=== PATIENT | female | born 1965 | race Hispanic/Latino ===

== ENCOUNTER 2019-10-20 10:29 | Emergency (ER) | payer OTHER ==
[2019-10-20] MEDS ORDERED: KETOROLAC 30 MG/ML INJ ONE (12:12)
[2019-10-20] MEDS ORDERED: ONDANSETRON 4 MG/2 ML VIAL ONE (12:12)
[2019-10-20] MEDS ORDERED: NA CHLORIDE 0.9% 1,000 ML ONE (12:12)
[2019-10-20 12:24] LABS: Absolute Lymphocytes (CBC) 1.7 K/uL (0.7-4.9); Basophils % 0.7 % (0-1.3); Hematocrit 41.6 % (36.0-45.0); Lymphocytes % 15.2 % (15.3-44.8); MPV 9.1 fL (7.6-11.3); RBC Red Blood Cell Count 4.73 M/uL (3.86-4.86)
[2019-10-20 12:42] LABS: Albumin 3.6 g/dL (3.4-5.0); Bilirubin Direct 0.1 mg/dL (0-0.2); Bilirubin Total 0.5 mg/dL (0.2-1.0); Potassium 3.7 mmol/L (3.5-5.1)
--- NOTE | 2019-10-20 12:51 | RAD REPORT ---
EXAM DESCRIPTION: CT - Abdomen Pelvis W Contrast - 10/20/2019 12:23 pm CLINICAL HISTORY: ABD PAIN COMPARISON: No comparisons TECHNIQUE: Biphasic, helical CT imaging of the abdomen and pelvis was performed following 100 ml non -ionic IV contrast. No oral contrast administered. All CT scans are performed using dose optimization technique as appropriate and may include automated exposure control or mA/KV adjustment according to patient size. FINDINGS: No suspicious findings in the lung bases. Diffuse fatty infiltration of the liver is present. No focal liver lesion. No portal vein abnormality . Spleen and pancreas show no suspicious findings. Gallbladder and biliary tree are also without susp icious finding. Symmetric renal function is seen with no hydronephrosis or suspicious renal mass. No pyelonephritis o r acute parenchymal process. Bladder is fully contracted. No adrenal abnormalities. Uterus and ovar ies show no suspicious findings. No stomach or small bowel abnormality. The appendix is normal. From cecum through mid descending colo n no acute findings seen. At the descending sigmoid junction there is a 5 centimeter long segment of circumferential wall thickening and edema. There is stranding in the adjacent fat. Patient has modera te severity diverticulosis in this region. No free air or pneumatosis. No extension into the extraluminal space. No hernia, mass or bulky lymph adenopathy. No suspicious bony findings. IMPRESSION: Acute diverticulitis at the descending colon - sigmoid colon junction in the left lower quadrant. No abscess, free air or other complicating factor.
--- NOTE | 2019-10-20 13:01 | ER ---
Nurse's Notes [facility] Name: Althea Gómez Age: 53 yrs Sex: Female : 1965 Arrival Date: 10/20/2019 Time: 10:32 Bed 20 Private MD: Diagnosis: Diverticulitis of intestine, part unspecified, without perforation or abscess without bleeding Presentation: 10/19 11:29 Chief complaint: Patient states: Lower pelvic pain since yesterday. Slight nausea. No ll1 fever. Coronavirus screen: Client denies travel out of the [place] in the last 14 days. At this time, the client does not indicate any symptoms associated with coronavirus-19. Ebola Screen: Patient denies travel to an Ebola-affected area in the 21 days before illness onset. Initial Sepsis Screen: Does the patient meet any 2 criteria? No. Patient's initial sepsis screen is negative. Risk Assessment: Do you want to hurt yourself or someone else? Patient reports no desire to harm self or others. Onset of symptoms was October 19, 2019. 11:29 Acuity: MAYRA 3 ll1 11:29 Method Of Arrival: Ambulatory ll1 Historical: - Allergies: 11:29 No Known Allergies; ll1 - Immunization history:: Adult Immunizations up to date, Flu vaccine is up to date. - Social history:: Smoking status: Patient denies any tobacco usage or history of. Patient/guardian denies using street drugs. Screenin:56 Abuse screen: Denies threats or abuse. Nutritional screening: No deficits noted. em Tuberculosis screening: No symptoms or risk factors identified. Fall Risk None identified. Assessment: 12:00 General: Appears in no apparent distress. comfortable, Behavior is calm, cooperative, em appropriate for age, Denies fever. Pain: Complains of pain in right inguinal area and left inguinal area Pain currently is 4 out of 10 on a pain scale. Pain began 1 day ago. Neuro: Level of Consciousness is awake, alert, obeys commands, Oriented to person, place, time, situation, Appropriate for age. Cardiovascular: Capillary refill < 3 seconds Patient's skin is warm and dry. Respiratory: Airway is patent Respiratory effort is even, unlabored, Respiratory pattern is regular, symmetrical. GI: Abdomen is flat, Bowel sounds present X 4 quads. Reports nausea, Patient currently denies diarrhea, vomiting. : Denies burning with urination, discharge, vaginal bleeding. Derm: Skin is intact, is healthy with good turgor, Skin is pink, warm \T\ dry. Musculoskeletal: Capillary refill < 3 seconds, Range of motion: intact in all extremities. 12:15 Reassessment: currently wants to hold off on the nausea medication, provider notified. em 13:20 Reassessment: Patient appears in no apparent distress at this time. Patient and/or em family updated on plan of care and expected duration. Pain level reassessed. Patient is alert, oriented x 3, equal unlabored respirations, skin warm/dry/pink. Patient states feeling better. Patient states symptoms have improved. Vital Signs: 11:29 BP 148 / 92; Pulse 109; Resp 18; Temp 99.0; Pulse Ox 100% ; Weight 69.4 kg; Height 5 ll1 ft. 1 in. (154.94 cm); Pain 8/10; 13:20 BP 129 / 89; Pulse 102; Resp 20; Pulse Ox 99% on R/A; em 11:29 Body Mass Index 28.91 (69.40 kg, 154.94 cm) ll1 ED Course: 10:32 Patient arrived in ED. ds1 11:29 Arm band placed on Patient notified of wait time. ll1 11:30 Triage completed. ll1 11:37 Lorrie Wood FNP-C is [facility]. kb 11:37 Xavier Abel MD is Attending Physician. kb 11:56 Jameson Richter, RN is Primary Nurse. em 11:56 Patient has correct armband on for positive identification. Placed in gown. Bed in low em position. Call light in reach. Side rails up X2. 12:23 CT Abd/Pelvis - IV Contrast Only In Process Unspecified. EDMS 13:20 No provider procedures requiring assistance completed. IV discontinued, intact, em bleeding controlled, No redness/swelling at site. Pressure dressing applied. Administered Medications: 12:13 Drug: NS 0.9% 1000 ml Route: IV; Rate: 1000 ml; Site: left antecubital; em 13:09 Follow up: IV Status: Completed infusion; IV Intake: 1000ml em 12:13 Drug: TORadol - Ketorolac 15 mg Route: IVP; Site: left antecubital; em 13:09 Drug: Cipro 500 mg Route: PO; em 13:09 Drug: Flagyl 500 mg Route: PO; em 13:11 Drug: Zofran (Ondansetron) 4 mg Route: IVP; Site: left antecubital; em Intake: 13:09 IV: 1000ml; Total: 1000ml. em Outcome: 13:00 Discharge ordered by . samuel 13:20 Discharged to home ambulatory. em 13:20 Condition: good 13:20 Discharge instructions given to patient, Instructed on discharge instructions, follow up and referral plans. medication usage, Demonstrated understanding of instructions, follow-up care, medications, Prescriptions given X 4. 13:22 Patient left the ED. ll1 Signatures: Dispatcher [employer] Lorrie Gutierrez, REVIEW SCHEDULING COORDINATOR-C REVIEW SCHEDULING COORDINATOR-Jameson Correia, RN RN Victoria Campuzano ds1 Valerie Granda RN RN ll1
--- NOTE | 2019-10-20 13:01 | EDPHYS ---
Physician Documentation [facility] Name: Althea Gómez Age: 53 yrs Sex: Female : 1965 Arrival Date: 10/20/2019 Time: 10:32 Bed 20 Private MD: ED Physician Xavier Abel HPI: 10/19 12:58 This 53 yrs old Female presents to ER via Ambulatory with complaints of Pelvic kb Pain. 12:58 The patient presents with abdominal pain in the left lower quadrant. Onset: The kb symptoms/episode began/occurred yesterday. The symptoms do not radiate. Associated signs and symptoms: Pertinent positives: nausea, Pertinent negatives: fever, vomiting. The symptoms are described as constant. Modifying factors: The symptoms are alleviated by nothing, the symptoms are aggravated by nothing. Severity of pain: At its worst the pain was moderate in the emergency department the pain is unchanged. The patient has not experienced similar symptoms in the past. The patient has not recently seen a physician. Historical: - Allergies: 11:29 No Known Allergies; ll1 - Immunization history:: Adult Immunizations up to date, Flu vaccine is up to date. - Social history:: Smoking status: Patient denies any tobacco usage or history of. Patient/guardian denies using street drugs. ROS: 12:57 Constitutional: Negative for fever, chills, and weight loss, Cardiovascular: Negative kb for chest pain, palpitations, and edema, Respiratory: Negative for shortness of breath, cough, wheezing, and pleuritic chest pain, Back: Negative for injury and pain, MS/Extremity: Negative for injury and deformity, Skin: Negative for injury, rash, and discoloration, Neuro: Negative for headache, weakness, numbness, tingling, and seizure. 12:57 Abdomen/GI: Positive for abdominal pain, nausea, Negative for vomiting, diarrhea, constipation. Exam: 12:57 Constitutional: This is a well developed, well nourished patient who is awake, alert, kb and in no acute distress. Head/Face: Normocephalic, atraumatic. Chest/axilla: Normal chest wall appearance and motion. Nontender with no deformity. No lesions are appreciated. Cardiovascular: Regular rate and rhythm with a normal S1 and S2. No gallops, murmurs, or rubs. Normal PMI, no JVD. No pulse deficits. Respiratory: Lungs have equal breath sounds bilaterally, clear to auscultation and percussion. No rales, rhonchi or wheezes noted. No increased work of breathing, no retractions or nasal flaring. Back: No spinal tenderness. No costovertebral tenderness. Full range of motion. Skin: Warm, dry with normal turgor. Normal color with no rashes, no lesions, and no evidence of cellulitis. MS/ Extremity: Pulses equal, no cyanosis. Neurovascular intact. Full, normal range of motion. Neuro: Awake and alert, GCS 15, oriented to person, place, time, and situation. Cranial nerves II-XII grossly intact. Motor strength 5/5 in all extremities. Sensory grossly intact. Cerebellar exam normal. Normal gait. 12:57 Abdomen/GI: Inspection: abdomen appears normal, Bowel sounds: normal, in all quadrants, Palpation: soft, in all quadrants, moderate abdominal tenderness, in the left lower quadrant. Vital Signs: 11:29 BP 148 / 92; Pulse 109; Resp 18; Temp 99.0; Pulse Ox 100% ; Weight 69.4 kg; Height 5 ll1 ft. 1 in. (154.94 cm); Pain 8/10; 13:20 BP 129 / 89; Pulse 102; Resp 20; Pulse Ox 99% on R/A; em 11:29 Body Mass Index 28.91 (69.40 kg, 154.94 cm) ll1 MDM: 11:55 Patient medically screened. kb 12:56 Data reviewed: vital signs, nurses notes. Data interpreted: Pulse oximetry: on room air kb is 100 %. Interpretation: normal. Counseling: I had a detailed discussion with the patient and/or guardian regarding: the historical points, exam findings, and any diagnostic results supporting the discharge/admit diagnosis, lab results, radiology results, the need for outpatient follow up, a family practitioner, a search strategist, to return to the emergency department if symptoms worsen or persist or if there are any questions or concerns that arise at home. ED course: Pt is nontoxic appearing, able to tolerate PO intake. Will discharge home with oral antibiotics. Pt will return for worsening symptoms, inability to tolerate medications, and any other concerns. . 10/19 12:00 Order name: Basic Metabolic Panel; Complete Time: 12:47 kb 10/19 12:00 Order name: CBC with Diff; Complete Time: 12:47 kb 10/19 12:00 Order name: Hepatic Function; Complete Time: 12:47 kb 10/19 12:00 Order name: Lipase; Complete Time: 12:47 kb 10/19 12:00 Order name: CT Abd/Pelvis - IV Contrast Only; Complete Time: 12:52 kb 10/19 12:37 Order name: Urine Dipstick--Ancillary (enter results); Complete Time: 13:16 bd 10/19 12:00 Order name: IV Saline Lock; Complete Time: 12:18 kb 10/19 12:00 Order name: Labs collected and sent; Complete Time: 12:18 kb Administered Medications: 12:13 Drug: NS 0.9% 1000 ml Route: IV; Rate: 1000 ml; Site: left antecubital; em 13:09 Follow up: IV Status: Completed infusion; IV Intake: 1000ml em 12:13 Drug: TORadol - Ketorolac 15 mg Route: IVP; Site: left antecubital; em 13:09 Drug: Cipro 500 mg Route: PO; em 13:09 Drug: Flagyl 500 mg Route: PO; em 13:11 Drug: Zofran (Ondansetron) 4 mg Route: IVP; Site: left antecubital; em Disposition: 10/20 08:57 Co-signature as Attending Physician, Xavier Abel MD I agree with the assessment and kdr plan of care. Disposition: 10/20/19 13:00 Discharged to Home. Impression: Diverticulitis of intestine, part unspecified, without perforation or abscess without bleeding. - Condition is Stable. - Discharge Instructions: Diverticulitis, [id number]. - Prescriptions for Flagyl 500 mg Oral Tablet - take 1 tablet by ORAL route every 8 hours for 10 days; 30 tablet. Zofran 4 mg Oral Tablet - take 1 tablet by ORAL route every 6 hours As needed; 20 tablet. Cipro 500 mg Oral Tablet - take 1 tablet by ORAL route every 12 hours for 10 days; 20 tablet. Diclofenac Sodium 75 mg Oral Tablet, Delayed Release (E.C.) - take 1 tablet by ORAL route 2 times per day As needed; 30 tablet. - Medication Reconciliation Form, Thank You Letter, Antibiotic Education, Prescription Opioid Use, Work release form form. - Follow up: Emergency Department; When: As needed; Reason: Worsening of condition. Follow up: Private Physician; When: 2 - 3 days; Reason: Recheck today's complaints, Continuance of care, Re-evaluation by your physician. Signatures: Dispatcher [employer] Lorrie Gutierrez, GAS SCRUBBER OPERATOR-C GAS SCRUBBER OPERATOR-Xavier Delgado MD MD kdr Munoz, Edgar RN RN em Valerie Granda RN RN ll1 Corrections: (The following items were deleted from the chart) 10/19 13:22 13:00 10/20/2019 13:00 Discharged to Home. Impression: Diverticulitis of intestine, ll1 part unspecified, without perforation or abscess without bleeding. Condition is Stable. Forms are Medication Reconciliation Form, Thank You Letter, Antibiotic Education, Prescription Opioid Use. Follow up: Emergency Department; When: As needed; Reason: Worsening of condition. Follow up: Private Physician; When: 2 - 3 days; Reason: Recheck today's complaints, Continuance of care, Re-evaluation by your physician. kb
[2019-10-20 13:11] LABS: Urine Blood TRACE (NEG); Urine Glucose NEGATIVE (NEG); Urine Protein NEGATIVE (NEG); Urine Specific Gravity 1.015 (1.005-1.030); Urine pH 5.5 (5.0-7.0)
[2019-10-20] MEDS ORDERED: metroNIDAZOLE 500 MG TABLET ONE (13:16)
[2019-10-20] MEDS ORDERED: CIPROFLOXACIN HCL 500 MG TAB ONE (13:16)
[2019-10-20 14:13] VITALS: BP 148/92; TEMP 99; O2SAT 100
== END 2019-10-20 13:22 | disposition home or self-care (01) ==
LOC: ER 10:29
DX: K57.92 Diverticulitis of intestine, part unspecified, without perforation or abscess without bleeding (principal)
CPT/HCPCS: 96361; 85025; 80048; 36415; 82565; 80076; 81003; 83690; 74177; 96375; 96374; 99283; Q9967; J7030; J2405

== ENCOUNTER 2020-01-23 10:20 | Emergency (ER) | payer OTHER ==
--- NOTE | 2020-01-23 10:57 | ER ---
Nurse's Notes [facility] Name: Althea Gómez Age: 54 yrs Sex: Female : 1965 Arrival Date: 01/23/2020 Time: 10:23 Bed 5 Private MD: Diagnosis: Diverticulitis of large intestine without perforation or abscess without bleeding Presentation: 01/22 10:23 Initial Sepsis Screen: Does the patient meet any 2 criteria? No. Patient's initial vg1 sepsis screen is negative. Does the patient have a suspected source of infection? No. Patient's initial sepsis screen is negative. 10:28 Chief complaint: Patient states: LLQ pain that is worse with walking started this sv morning. Denies n/v/d. Was seen here a few months ago and dx with diverticulitis then. Coronavirus screen: Client denies travel out of the [place] in the last 14 days. At this time, the client does not indicate any symptoms associated with coronavirus-19. Ebola Screen: No symptoms or risks identified at this time. Risk Assessment: Do you want to hurt yourself or someone else? Patient reports no desire to harm self or others. Onset of symptoms was January 23, 2020. 10:28 Method Of Arrival: Ambulatory sv 10:28 Acuity: MAYRA 3 sv Triage Assessment: 10:20 General: Appears in no apparent distress. comfortable, Behavior is calm, cooperative. 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 - Social history:: Smoking status: Patient reports the use of cigarette tobacco products, denies chronic smoking, but will smoke occasionally. - Family history:: not pertinent. - Hospitalizations: : No recent hospitalization is reported. Screenin:20 Abuse screen: Denies threats or abuse. Nutritional screening: No deficits noted. vg1 Tuberculosis screening: No symptoms or risk factors identified. Fall Risk No fall in past 12 months (0 pts). No secondary diagnosis (0 pts). No IV (0 pts). Ambulatory Aid- None/Bed Rest/Nurse Assist (0 pts). Gait- Weak (10 pts.). Mental Status- Overestimates/Forgets Limitations (15 pts.). Total Basurto Fall Scale indicates No Risk (0-24 pts). Assessment: 10:20 General: Appears in no apparent distress. comfortable, Behavior is calm, cooperative. vg1 Pain: Complains of pain in abdomen Pain currently is 0 out of 10 on a pain scale. Pain began this morning. Neuro: Level of Consciousness is awake, alert, obeys commands, Oriented to person, place, time, situation. Cardiovascular: Patient's skin is warm and dry. Respiratory: Airway is patent Respiratory effort is even, unlabored, Respiratory pattern is regular, symmetrical. GI: Bowel sounds hypoactive in x4 quads denies pain upon palpation. : EENT: No signs and/or symptoms were reported regarding the EENT system. Derm: Skin is pink, warm \T\ dry. Musculoskeletal: Range of motion: intact in all extremities. Vital Signs: 10:28 Weight 68.04 kg; Height 5 ft. 1 in. (154.94 cm); Pain 9/10; sv 10:30 BP 131 / 86; Pulse 95; Resp 16; Temp 98.7(O); Pulse Ox 95% on R/A; vg1 11:00 BP 116 / 82; Pulse 90; Resp 14; Pulse Ox 98% on R/A; vg1 10:28 Body Mass Index 28.34 (68.04 kg, 154.94 cm) sv ED Course: 10:23 Patient arrived in ED. mr 10:23 Patient has correct armband on for positive identification. Bed in low position. Call vg1 light in reach. Adult w/ patient. Door closed. 10:25 Ruslan Ashley MD is Attending Physician. rn 10:26 Anna Marie Jacques RN is Primary Nurse. vg1 10:28 Arm band placed on Patient placed in an exam room, on a stretcher. sv 10:29 Triage completed. sv 10:30 ED physician to see patient. sv 11:10 No provider procedures requiring assistance completed. Patient did not have IV access vg1 during this emergency room visit. Administered Medications: 10:49 Drug: Cipro 500 mg Route: PO; vg1 11:19 Follow up: Response: No adverse reaction vg1 10:49 Drug: Flagyl 500 mg Route: PO; vg1 11:19 Follow up: Response: No adverse reaction vg1 Outcome: 10:57 Discharge ordered by . rn 11:10 Discharged to home ambulatory, with family. vg1 11:10 Condition: good 11:10 Discharge instructions given to patient, family, Instructed on discharge instructions, follow up and referral plans. medication usage, Demonstrated understanding of instructions, follow-up care, medications, Prescriptions given X 4. 11:11 Patient left the ED. vg1 Signatures: Marlee Russell RN RN sv Rivera, Mary mr Nieto, Roman, MD MD rn Garcia, CHARLES Thrasher RN vg1
--- NOTE | 2020-01-23 10:57 | EDPHYS ---
Physician Documentation [facility] Name: Althea Gómez Age: 54 yrs Sex: Female : 1965 Arrival Date: 01/23/2020 Time: 10:23 Bed 5 Private MD: ED Physician Ruslan Ashley HPI: 01/22 10:50 This 54 yrs old Female presents to ER via Ambulatory with complaints of rn Abdominal Pain. 10:50 The patient presents with abdominal pain in the left lower quadrant. Onset: The rn symptoms/episode began/occurred yesterday. The symptoms do not radiate. Associated signs and symptoms: Pertinent positives: fever, Pertinent negatives: nausea and vomiting, anorexia, blood in stools, chest pain, constipation, diarrhea, dysuria, vaginal discharge, vomiting blood. The symptoms are described as intermittent, sharp. Modifying factors: The symptoms are alleviated by nothing, the symptoms are aggravated by touching the area. Severity of pain: At its worst the pain was mild in the emergency department the pain is unchanged. The patient has experienced a previous episode. The patient has not recently seen a physician. Reports symptoms identical to a few months ago when diagnosed with diverticulitis, + low grade fever, + LLQ tenderness, no vomiting/diarrhea. Has been eating popcorn lately and binging TV shows while at home. No blood in stool. Just started yesterday, pain is mild. . DIRECTOR FOOD AND BEVERAGE: 10:23 LMP N/A - Hysterectomy vg1 Historical: - Allergies: 10:29 No Known Allergies; sv - PMHx: 10:29 Diverticulitis; sv - PSHx: 10:29 None; sv - Immunization history:: Flu vaccine is not up to date. - Social history:: Smoking status: Patient reports the use of cigarette tobacco products, denies chronic smoking, but will smoke occasionally. - Family history:: not pertinent. - Hospitalizations: : No recent hospitalization is reported. ROS: 10:50 Constitutional: + low grade fever Eyes: Negative for injury, pain, redness, and internet programmer, Neck: Negative for injury, pain, and swelling, Cardiovascular: Negative for chest pain, palpitations, and edema, Respiratory: Negative for shortness of breath, cough, wheezing, and pleuritic chest pain, Abdomen/GI: + LLQ abd pain Back: Negative for injury and pain, : Negative for injury, bleeding, discharge, and swelling, MS/Extremity: Negative for injury and deformity, Skin: Negative for injury, rash, and discoloration, Neuro: Negative for headache, weakness, numbness, tingling, and seizure. Exam: 10:50 Constitutional: This is a well developed, well nourished patient who is awake, alert, rn and in no acute distress. Head/Face: Normocephalic, atraumatic. Cardiovascular: Regular rate and rhythm. No pulse deficits. Respiratory: No increased work of breathing, no retractions or nasal flaring. Abdomen/GI: soft, + mild LLQ tenderness, no rebound, no peritoneal signs. Skin: Warm, dry with normal turgor. Normal color with no rashes, no lesions, and no evidence of cellulitis. MS/ Extremity: Pulses equal, no cyanosis. Neuro: Awake and alert, GCS 15 Vital Signs: 10:28 Weight 68.04 kg; Height 5 ft. 1 in. (154.94 cm); Pain 9/10; sv 10:30 BP 131 / 86; Pulse 95; Resp 16; Temp 98.7(O); Pulse Ox 95% on R/A; vg1 11:00 BP 116 / 82; Pulse 90; Resp 14; Pulse Ox 98% on R/A; vg1 10:28 Body Mass Index 28.34 (68.04 kg, 154.94 cm) sv MDM: 10:25 Patient medically screened. rn 10:50 Differential diagnosis: diverticulitis, non-specific abd pain, Ureterolithiasis. Data rn reviewed: vital signs, nurses notes, old medical records, and as a result, I will discharge patient. Counseling: I had a detailed discussion with the patient and/or guardian regarding: the historical points, exam findings, and any diagnostic results supporting the discharge/admit diagnosis, the need for outpatient follow up, to return to the emergency department if symptoms worsen or persist or if there are any questions or concerns that arise at home. Special discussion: Based on the patient's Hx, exam, and Dx evaluation, there is no indication for emergent surgery or inpatient Tx. It is understood by the patient/guardian that if the Sx's persist or worsen they need to return immediately for re-evaluation. I discussed with the patient/guardian in detail that at this point there is no indication for admission to the hospital. It is understood, however, that if the symptoms persist or worsen the patient needs to return immediately for re-evaluation. ED course: Pt with identical symptoms to previous diverticulitis, after discussion with patient and given pain mild and just started, will not get bloodwork or CT abdomen at this point, patient agrees, will return if symptoms worsen. No urinary symptoms or hx of kidney stone. . Administered Medications: 10:49 Drug: Cipro 500 mg Route: PO; vg1 11:19 Follow up: Response: No adverse reaction vg1 10:49 Drug: Flagyl 500 mg Route: PO; vg1 11:19 Follow up: Response: No adverse reaction vg1 Disposition: 01/23/20 10:57 Discharged to Home. Impression: Diverticulitis of large intestine without perforation or abscess without bleeding. - Condition is Stable. - Discharge Instructions: High-Fiber Diet, Diverticulitis. - Prescriptions for Zofran ODT 4 mg Oral tablet,disintegrating - place 1 tablet by TRANSLINGUAL route every 8 hours As needed; 20 tablet. Flagyl 500 mg Oral Tablet - take 1 tablet by ORAL route every 12 hours for 7 days; 14 tablet. Ultram 50 mg Oral Tablet - take 1 tablet by ORAL route every 6 hours As needed; 12 tablet. Cipro 500 mg Oral Tablet - take 1 tablet by ORAL route every 12 hours for 7 days; 14 tablet. - Medication Reconciliation Form, Thank You Letter, Antibiotic Education, Prescription Opioid Use form. - Follow up: Private Physician; When: As needed; Reason: Recheck today's complaints, Re-evaluation by your physician. - Problem is new. - Symptoms have improved. Signatures: Marlee Russell RN RN sv Nieto, Roman, MD MD rn Garcia, Victoria, RN RN vg1 Corrections: (The following items were deleted from the chart) 10:56 10:50 ED course: Pt with identical symptoms to previous diverticulitis, after rn discussion with patient and given pain mild and just started, will not get bloodwork or CT abdomen at this point, patient agrees, will return if symptoms worsen. . rn 11:11 10:57 01/23/2020 10:57 Discharged to Home. Impression: Diverticulitis of large vg1 intestine without perforation or abscess without bleeding. Condition is Stable. Forms are Medication Reconciliation Form, Thank You Letter, Antibiotic Education, Prescription Opioid Use. Follow up: Private Physician; When: As needed; Reason: Recheck today's complaints, Re-evaluation by your physician. Problem is new. Symptoms have improved. rn
[2020-01-23] MEDS ORDERED: metroNIDAZOLE 500 MG TABLET ONE (11:01)
[2020-01-23] MEDS ORDERED: CIPROFLOXACIN HCL 500 MG TAB ONE (11:01)
== END 2020-01-23 11:11 | disposition home or self-care (01) ==
LOC: ER 10:20
DX: K57.32 Diverticulitis of large intestine without perforation or abscess without bleeding (principal); F17.210 Nicotine dependence, cigarettes, uncomplicated
CPT/HCPCS: 99283